=== PATIENT | male | born 1945 | race Caucasian/White ===

== ENCOUNTER 2016-09-30 15:36 | Inpatient (IN) | payer MEDICARE, BC ==
[2016-09-30 16:15] LABS: CHLORIDE,CL 103 mmol/L (98-110); SODIUM,NA 140 mmol/L (136-146)
[2016-09-30] MEDS ORDERED: Iopamidol 755 MG/ML 500 ML Multipack Bottle IVPUSH STA (17:14)
[2016-09-30] MEDS ORDERED: Heparin Sodium/D5W 25,000 UNITS/500 ML BAG IV SCH (18:15)
[2016-09-30] MEDS ORDERED: Heparin Sodium 5,000 Units/ML Vial IV ONE (18:30)
[2016-09-30] MEDS ORDERED: LORazepam 2 MG/ML MDV IVPUSH PRN ×2 (20:25→20:32)
[2016-09-30] MEDS ORDERED: oxyCODONE 5 MG Tab PO PRN (20:31)
--- NOTE | 2016-09-30 20:32 | PCM.HP ---
H&P History of Present Illness - General Admit Problem/Dx: Admission Diagnosis/Problem Admission Diagnosis/Problem Tachycardia - History of Present Illness Initial Comments - Free Text/Narative: 71 yo male who woke up this morning with a painful swollen right calf. He did have an episode of lightheadedness and shortness of breath. He presented to Dr. Stanton's clinic where he was noted to be tachycardic with EKG showing junctional tachycardia with heart rate of 122. He was directely admitted to the hospital. He then underwent a CT angio which reported bilateral acute pulmonary emboli with large clot burden. Patient currently denies any shortness of breath or chest pain. Echocardiogram was performed at bedside with eICU Dr. Ordonez on monitor and severe RV dysfunction was not seen. Right Leg Pain Score (Numeric/FACES): 1 - Related Data Allergies/Adverse Reactions: Allergies Allergy/AdvReac Type Severity Reaction Status Date / Time No Known Allergies Allergy Verified 09/30/16 16:58 Past Medical History - Infectious Disease History Infectious Disease History: Reports: Chicken Pox - Past Surgical History HEENT Surgical History: Reports: Other (See Below) Other HEENT Surgeries/Procedures: adenoid surgery when he was 17 yo. pt barely can remember. Social & Family History - Family History Family Medical History: Noncontributory - Tobacco Use Smoking Status *Q: Never Smoker Second Hand Smoke Exposure: No - Caffeine Use Caffeine Use: Reports: None - Alcohol Use Days Per Week of Alcohol Use: 7 Number of Drinks Per Day: 10 Total Drinks Per Week: 70 Date of Last Drink: 09/29/16 Time of Last Drink: 20:40 - Recreational Drug Use Recreational Drug Use: Yes H&P Review of Systems - Review of Systems: Review Of Systems: See Below General: Reports: No Symptoms HEENT: Reports: No Symptoms Pulmonary: Reports: No Symptoms Cardiovascular: Reports: No Symptoms Gastrointestinal: Reports: No Symptoms Genitourinary: Reports: No Symptoms Musculoskeletal: Reports: No Symptoms Skin: Reports: No Symptoms Psychiatric: Reports: No Symptoms Neurological: Reports: No Symptoms Hematologic/Lymphatic: Reports: No Symptoms Immunologic: Reports: No Symptoms Exam - Exam Exam: See Below - Vital Signs Vital Signs: Last Vital Signs Temp 36.4 C 09/30/16 17:17 Pulse 127 H 09/30/16 16:57 Resp 17 09/30/16 19:00 BP 131/87 09/30/16 19:00 Pulse Ox 94 L 09/30/16 19:00 Weight: 85.684 kg - Exam General: Alert, Oriented, 4 Lungs: Clear to Auscultation, Normal Respiratory Effort Cardiovascular: Regular Rhythm, Tachycardia Extremities: Normal Inspection. No: Cyanosis, Edema Skin: Warm, Dry, Intact Neurological: No: Focal Deficit Neuro Extensive - Mental Status: Alert, Oriented x3 - Patient Data Lab Results last 24 hrs: Laboratory Results - last 24 hr 09/30/16 09/30/16 09/30/16 Range/Units 15:46 15:46 15:46 WBC 9.92 (4.0-11.0) K/uL RBC 5.01 (4.50-5.90) M/uL Hgb 17.5 H (13.0-17.0) g/dL Hct 50.5 H (38.0-50.0) % MCV 100.8 H (80.0-98.0) fL MCH 34.9 H (27.0-32.0) pg MCHC 34.7 (31.0-37.0) g/dL RDW Std Deviation 52.6 (28.0-62.0) fl RDW Coeff of Joyce 14 (11.0-15.0) % Plt Count 166 (150-400) K/uL MPV 9.30 (7.40-12.00) fL Neut % (Auto) 84.5 H (48.0-80.0) % Lymph % (Auto) 6.6 L (16.0-40.0) % Canadian % (Auto) 7.5 (0.0-15.0) % Eos % (Auto) 1.2 (0.0-7.0) % Baso % (Auto) 0.2 (0.0-1.5) % Neut # (Auto) 8.4 H (1.4-5.7) K/uL Lymph # (Auto) 0.7 (0.6-2.4) K/uL Canadian # (Auto) 0.7 (0.0-0.8) K/uL Eos # (Auto) 0.1 (0.0-0.7) K/uL Baso # (Auto) 0.0 (0.0-0.1) K/uL Nucleated RBC % 0.0 /100WBC Nucleated RBCs # 0 K/uL INR (0.86-1.11) APTT (18.6-31.3) SEC D-Dimer, Quantitative (0.0-0.52) mg/LFEU Sodium 140 (136-146) mmol/L Potassium 4.1 (3.5-5.1) mmol/L Chloride 103 (98-110) mmol/L Carbon Dioxide 24 (21-31) mmol/L BUN 9 (6.0-23.0) mg/dL Creatinine 0.8 (0.6-1.5) mg/dL Est Cr Clr Drug Dosing TNP Estimated GFR (MDRD) > 60.0 ml/min Glucose 130 H (60-110) mg/dL Calcium 9.5 (8.8-10.8) mg/dL Total Bilirubin 1.9 H (0.1-1.5) mg/dL AST 31 (5-40) IU/L ALT 25 (8-54) IU/L Alkaline Phosphatase 86 (40-150) Troponin I 0.45 H* (0.0-0.29) NG/ML B-Natriuretic Peptide (<100) PG/ML Total Protein 7.5 (6.0-8.0) g/dL Albumin 4.0 (3.4-4.8) g/dL Globulin 3.5 (2.0-3.5) g/dL Albumin/Globulin Ratio 1.1 L (1.3-2.8) 09/30/16 09/30/16 09/30/16 Range/Units 15:46 15:46 15:46 WBC (4.0-11.0) K/uL RBC (4.50-5.90) M/uL Hgb (13.0-17.0) g/dL Hct (38.0-50.0) % MCV (80.0-98.0) fL MCH (27.0-32.0) pg MCHC (31.0-37.0) g/dL RDW Std Deviation (28.0-62.0) fl RDW Coeff of Joyce (11.0-15.0) % Plt Count (150-400) K/uL MPV (7.40-12.00) fL Neut % (Auto) (48.0-80.0) % Lymph % (Auto) (16.0-40.0) % Canadian % (Auto) (0.0-15.0) % Eos % (Auto) (0.0-7.0) % Baso % (Auto) (0.0-1.5) % Neut # (Auto) (1.4-5.7) K/uL Lymph # (Auto) (0.6-2.4) K/uL Canadian # (Auto) (0.0-0.8) K/uL Eos # (Auto) (0.0-0.7) K/uL Baso # (Auto) (0.0-0.1) K/uL Nucleated RBC % /100WBC Nucleated RBCs # K/uL INR (0.86-1.11) APTT 27.5 (18.6-31.3) SEC D-Dimer, Quantitative 18.12 H (0.0-0.52) mg/LFEU Sodium (136-146) mmol/L Potassium (3.5-5.1) mmol/L Chloride (98-110) mmol/L Carbon Dioxide (21-31) mmol/L BUN (6.0-23.0) mg/dL Creatinine (0.6-1.5) mg/dL Est Cr Clr Drug Dosing Estimated GFR (MDRD) ml/min Glucose (60-110) mg/dL Calcium (8.8-10.8) mg/dL Total Bilirubin (0.1-1.5) mg/dL AST (5-40) IU/L ALT (8-54) IU/L Alkaline Phosphatase (40-150) Troponin I (0.0-0.29) NG/ML B-Natriuretic Peptide 183 H (<100) PG/ML Total Protein (6.0-8.0) g/dL Albumin (3.4-4.8) g/dL Globulin (2.0-3.5) g/dL Albumin/Globulin Ratio (1.3-2.8) 09/30/ Range/Units 15:46 WBC (4.0-11.0) K/uL RBC (4.50-5.90) M/uL Hgb (13.0-17.0) g/dL Hct (38.0-50.0) % MCV (80.0-98.0) fL MCH (27.0-32.0) pg MCHC (31.0-37.0) g/dL RDW Std Deviation (28.0-62.0) fl RDW Coeff of Joyce (11.0-15.0) % Plt Count (150-400) K/uL MPV (7.40-12.00) fL Neut % (Auto) (48.0-80.0) % Lymph % (Auto) (16.0-40.0) % Canadian % (Auto) (0.0-15.0) % Eos % (Auto) (0.0-7.0) % Baso % (Auto) (0.0-1.5) % Neut # (Auto) (1.4-5.7) K/uL Lymph # (Auto) (0.6-2.4) K/uL Canadian # (Auto) (0.0-0.8) K/uL Eos # (Auto) (0.0-0.7) K/uL Baso # (Auto) (0.0-0.1) K/uL Nucleated RBC % /100WBC Nucleated RBCs # K/uL INR 1.08 (0.86-1.11) APTT (18.6-31.3) SEC D-Dimer, Quantitative (0.0-0.52) mg/LFEU Sodium (136-146) mmol/L Potassium (3.5-5.1) mmol/L Chloride (98-110) mmol/L Carbon Dioxide (21-31) mmol/L BUN (6.0-23.0) mg/dL Creatinine (0.6-1.5) mg/dL Est Cr Clr Drug Dosing Estimated GFR (MDRD) ml/min Glucose (60-110) mg/dL Calcium (8.8-10.8) mg/dL Total Bilirubin (0.1-1.5) mg/dL AST (5-40) IU/L ALT (8-54) IU/L Alkaline Phosphatase (40-150) Troponin I (0.0-0.29) NG/ML B-Natriuretic Peptide (<100) PG/ML Total Protein (6.0-8.0) g/dL Albumin (3.4-4.8) g/dL Globulin (2.0-3.5) g/dL Albumin/Globulin Ratio (1.3-2.8) Result Diagrams: 10/01/16 03:52 10/01/16 03:52 *Q Meaningful Use (ADM) - VTE *Q VTE Criteria *Q: - Stroke *Q Stroke Criteria *Q: - AMI *Q AMI Criteria *Q: Problem List Initiated/Reviewed/Updated: Yes Orders Last 24hrs: Active Orders 24 hr Category Date Time Status Transfer Patient (Change bed) [ADT] Routine ADT 09/30/16 17:00 Ordered Cardiac Monitoring [RC] Q8H Care 09/30/16 17:00 Active EKG Documentation Completion [RC] ROUTINE Care 10/01/16 07:00 Active Heart Healthy Diet [DIET] Diet 09/30/16 Dinner Active Ang Chest [CT] Stat Exams 09/30/16 17:02 Taken Echo Comp wo Cont [US] Urgent Exams 09/30/16 19:05 Ordered PTT,PARTIAL THROMBOPLSTIN TIME [COAG] Q6H Lab 09/30/16 22:00 Ordered PTT,PARTIAL THROMBOPLSTIN TIME [COAG] Q6H Lab 10/01/16 04:00 Ordered PTT,PARTIAL THROMBOPLSTIN TIME [COAG] Q6H Lab 10/01/16 10:00 Ordered PTT,PARTIAL THROMBOPLSTIN TIME [COAG] Q6H Lab 10/01/16 16:00 Ordered PTT,PARTIAL THROMBOPLSTIN TIME [COAG] Q6H Lab 10/01/16 22:00 Ordered PTT,PARTIAL THROMBOPLSTIN TIME [COAG] Q6H Lab 10/02/16 04:00 Ordered TROPONIN I [CHEM] Routine Lab 09/30/16 22:00 Ordered TROPONIN I [CHEM] Routine Lab 10/01/16 04:00 Ordered Heparin Sod,Pork In 0.45% Nacl [Heparin-1/2Ns 25,000 Med 09/30/16 18:30 Active Units/500] 500 ml IV TITRATE Medication Orders Heparin Sod,Pork In 0.45% Nacl (Heparin-1/2ns 25,000 Units/500) 500 mls @ 30.211 mls/hr IV TITRATE ANIL; 18 UNITS/KG/HR PRN Reason: Protocol Last Admin: 09/30/16 18:29 Dose: 18 units/kg/hr, 30.211 mls/hr Assessment/Plan Comment:: 71 yo male admited with bilateral acute pulmonary emboli. There is large clot burden but as patient is hemodynamically stable and not hypoxic I would avoid risk of thrombolysis. We will treat with Heparin drip and monitor in the ICU.
[2016-09-30] MEDS: Thiamine 200 MG/2 ML MDV IV SCH (21:04)
[2016-09-30] MEDS: Folic Acid 50 MG/10 ML MDV SUBCUT SCH (21:07)
[2016-10-01 04:27] LABS: CHLORIDE,CL 107 mmol/L (98-110); SODIUM,NA 141 mmol/L (136-146)
[2016-10-01] MEDS: Folic Acid 50 MG/10 ML MDV SUBCUT SCH (09:01)
[2016-10-01] MEDS: Thiamine 200 MG/2 ML MDV IV SCH (09:03)
--- NOTE | 2016-10-01 13:32 | CT ---
EXAM DATE: 09/30/16 PATIENT'S AGE: 71 Patient: EMILY LANGLEY Facility: [place], [place] Site . Site : 1945 Study: CT Chest Angio [id number] 6:09:42 PM Ordering Physician: Romy Arroyo Final Report: HISTORY: Shortness of breath. TECHNIQUE: Intravenous contrast enhanced CT of the chest. 50 mL of Isovue-370 intravenous contrast administered. COMPARISON: No prior. FINDINGS: The study is positive for bilateral pulmonary emboli with large clot burden. Pulmonary emboli are present within the distal right pulmonary artery extending into upper lobe, middle lobe and lower lobe pulmonary arterial branches. On the left, there are pulmonary emboli within the distal pulmonary artery extending into upper lobe, lingular and left lower lobe pulmonary arterial branches. There is no thoracic aortic aneurysm. No significant pericardial effusion. 1 cm right paratracheal short axis lymph node. No other enlarged lymph nodes. Trace amount of right pleural fluid. Subpleural opacity within the right lower lobe could relate to small areas of pulmonary infarction. Subpleural atelectasis would be a secondary consideration. 3 mm subpleural nodule right lower lobe image #393 of series 401. No pneumothorax. Degenerative changes of the spine. IMPRESSION: 1. Bilateral acute pulmonary emboli with large clot burden. 2. Areas of subpleural opacity within the right lower lobe may relate to small areas of pulmonary infarction. 3. Trace right pleural fluid. 4. A 3 mm subpleural micro nodule within the right lower lobe. - Findings were discussed with Dr. Gu on 09/30/2016 at 6:45 p.m. Dictated by Balbir Carson MD @ 09/30/2016 6:43:08 PM Dictated by: Balbir Carson MD @ 09/30/2016 18:47:26 (Electronic Signature) Report Signed by Proxy. JASPER
--- NOTE | 2016-10-01 15:21 | ECHO ---
The echocardiogram report can be seen in this patient's EMR in the Reports section. JASPER
--- NOTE | 2016-10-01 18:40 | PCM.PN ---
- General Info Admission Dx/Problem (Free Text): Admission Diagnosis/Problem Admission Diagnosis/Problem Tachycardia Subjective Update: Patient feels good. no complaints or concerns Functional Status: Reports: pain controlled - Review of Systems General: Reports: No Symptoms HEENT: Reports: no symptoms Pulmonary: Reports: no symptoms Cardiovascular: Reports: No Symptoms Gastrointestinal: Reports: No symptoms Genitourinary: Reports: no symptoms Musculoskeletal: Reports: no symptoms Skin: Reports: no symptoms Neurological: Reports: No Symptoms Psychiatric: Reports: no symptoms - Patient Data Vitals - most recent: Last Vital Signs Temp 38.2 C H 10/01/16 14:00 Pulse 127 H 09/30/16 16:57 Resp 19 10/01/16 17:00 BP 130/86 10/01/16 17:00 Pulse Ox 94 L 10/01/16 17:00 Weight - most recent: 85.366 kg I&O - last 24 hours: Intake & Output 10/01/16 10/01/16 10/01/16 06:59 14:59 22:59 Intake Total 400 182 750 Output Total 380 400 Balance 20 182 350 Lab Results last 24 hrs: Laboratory Results - last 24 hr 09/30/16 09/30/16 10/01/16 Range/Units 22:00 22:00 03:52 WBC (4.0-11.0) K/uL RBC (4.50-5.90) M/uL Hgb (13.0-17.0) g/dL Hct (38.0-50.0) % MCV (80.0-98.0) fL MCH (27.0-32.0) pg MCHC (31.0-37.0) g/dL RDW Std Deviation (28.0-62.0) fl RDW Coeff of Joyce (11.0-15.0) % Plt Count (150-400) K/uL MPV (7.40-12.00) fL Neut % (Auto) (48.0-80.0) % Lymph % (Auto) (16.0-40.0) % Leslie % (Auto) (0.0-15.0) % Eos % (Auto) (0.0-7.0) % Baso % (Auto) (0.0-1.5) % Neut # (Auto) (1.4-5.7) K/uL Lymph # (Auto) (0.6-2.4) K/uL Leslie # (Auto) (0.0-0.8) K/uL Eos # (Auto) (0.0-0.7) K/uL Baso # (Auto) (0.0-0.1) K/uL Nucleated RBC % /100WBC Nucleated RBCs # K/uL APTT 82.6 H (18.6-31.3) SEC Sodium (136-146) mmol/L Potassium (3.5-5.1) mmol/L Chloride (98-110) mmol/L Carbon Dioxide (21-31) mmol/L BUN (6.0-23.0) mg/dL Creatinine (0.6-1.5) mg/dL Est Cr Clr Drug Dosing mL/min Estimated GFR (MDRD) ml/min Glucose (60-110) mg/dL Calcium (8.8-10.8) mg/dL Troponin I 0.46 H* 0.29 (0.0-0.29) NG/ML 10/01/16 10/01/16 10/01/16 Range/Units 03:52 03:52 03:52 WBC 9.93 (4.0-11.0) K/uL RBC 4.51 (4.50-5.90) M/uL Hgb 15.7 (13.0-17.0) g/dL Hct 44.8 (38.0-50.0) % MCV 99.3 H (80.0-98.0) fL MCH 34.8 H (27.0-32.0) pg MCHC 35.0 (31.0-37.0) g/dL RDW Std Deviation 52.3 (28.0-62.0) fl RDW Coeff of Joyce 14 (11.0-15.0) % Plt Count 145 L (150-400) K/uL MPV 9.50 (7.40-12.00) fL Neut % (Auto) 67.6 (48.0-80.0) % Lymph % (Auto) 16.0 (16.0-40.0) % Leslie % (Auto) 10.9 (0.0-15.0) % Eos % (Auto) 5.1 (0.0-7.0) % Baso % (Auto) 0.4 (0.0-1.5) % Neut # (Auto) 6.7 H (1.4-5.7) K/uL Lymph # (Auto) 1.6 (0.6-2.4) K/uL Leslie # (Auto) 1.1 H (0.0-0.8) K/uL Eos # (Auto) 0.5 (0.0-0.7) K/uL Baso # (Auto) 0.0 (0.0-0.1) K/uL Nucleated RBC % 0.0 /100WBC Nucleated RBCs # 0 K/uL APTT 56.7 H (18.6-31.3) SEC Sodium 141 (136-146) mmol/L Potassium 3.7 (3.5-5.1) mmol/L Chloride 107 (98-110) mmol/L Carbon Dioxide 22 (21-31) mmol/L BUN 8 (6.0-23.0) mg/dL Creatinine 0.7 (0.6-1.5) mg/dL Est Cr Clr Drug Dosing 114.17 mL/min Estimated GFR (MDRD) > 60.0 ml/min Glucose 99 (60-110) mg/dL Calcium 8.7 L (8.8-10.8) mg/dL Troponin I (0.0-0.29) NG/ML 10/01/16 10/01/16 Range/Units 09:57 16:00 WBC (4.0-11.0) K/uL RBC (4.50-5.90) M/uL Hgb (13.0-17.0) g/dL Hct (38.0-50.0) % MCV (80.0-98.0) fL MCH (27.0-32.0) pg MCHC (31.0-37.0) g/dL RDW Std Deviation (28.0-62.0) fl RDW Coeff of Joyce (11.0-15.0) % Plt Count (150-400) K/uL MPV (7.40-12.00) fL Neut % (Auto) (48.0-80.0) % Lymph % (Auto) (16.0-40.0) % Leslie % (Auto) (0.0-15.0) % Eos % (Auto) (0.0-7.0) % Baso % (Auto) (0.0-1.5) % Neut # (Auto) (1.4-5.7) K/uL Lymph # (Auto) (0.6-2.4) K/uL Leslie # (Auto) (0.0-0.8) K/uL Eos # (Auto) (0.0-0.7) K/uL Baso # (Auto) (0.0-0.1) K/uL Nucleated RBC % /100WBC Nucleated RBCs # K/uL APTT 50.2 H 50.2 H (18.6-31.3) SEC Sodium (136-146) mmol/L Potassium (3.5-5.1) mmol/L Chloride (98-110) mmol/L Carbon Dioxide (21-31) mmol/L BUN (6.0-23.0) mg/dL Creatinine (0.6-1.5) mg/dL Est Cr Clr Drug Dosing mL/min Estimated GFR (MDRD) ml/min Glucose (60-110) mg/dL Calcium (8.8-10.8) mg/dL Troponin I (0.0-0.29) NG/ML Med Orders - Current: Current Medications Alteplase, Recombinant (Activase) 100 mg IV ONETIME PRN PRN Reason: see label comments Folic Acid (Folic Acid) 1 mg SUBCUT DAILY ANIL Last Admin: 10/01/16 09:01 Dose: 1 mg Heparin Sod,Pork In 0.45% Nacl (Heparin-1/2ns 25,000 Units/500) 500 mls @ 30.211 mls/hr IV TITRATE ANIL; 18 UNITS/KG/HR PRN Reason: Protocol Last Admin: 10/01/16 12:44 Dose: 16 units/kg/hr, 26.854 mls/hr Lorazepam (Ativan) 0 mg IVPUSH Q4H PRN; Protocol PRN Reason: Agitation Last Admin: 09/30/16 21:40 Dose: 1 mg Oxycodone HCl (Oxycodone) 5 mg PO Q4H PRN PRN Reason: Pain Thiamine HCl (Vitamin B-1) 100 mg IV DAILY ANIL Last Admin: 10/01/16 09:03 Dose: 100 mg Discontinued Medications Alteplase, Recombinant (Activase) Confirm Administered Dose 100 mg .ROUTE .STK- MED ONE Stop: 09/30/16 19:48 Last Admin: 10/01/16 08:12 Dose: Not Given Heparin Sodium (Porcine) (Heparin Sodium) 5,000 units IV ONETIME ONE Stop: 09/30/16 18:31 Last Admin: 09/30/16 18:26 Dose: 5,000 units Iopamidol (Isovue Multipack-370 (76%)) 50 ml IVPUSH ONETIME STA Stop: 09/30/16 17:15 Last Admin: 09/30/16 17:14 Dose: 50 ml Lorazepam (Ativan) 0 mg IVPUSH Q6H PRN; Protocol PRN Reason: Agitation - Exam General: alert, oriented HEENT: Pupils equal, Pupils reactive, EOMI, Mucous membr. moist/pink Neck: supple Lungs: Clear to auscultation, Normal respiratory effort Cardiovascular: Regular Rhythm, Tachycardia Abdomen: bowel sounds present, soft, no tenderness, no distension (Male) Exam: No Hernia, Normal Inspection, Normal Prostate, Circumcised Back Exam: Normal Inspection, Full Range of Motion Extremities: no edema Skin: warm, dry, intact Wound/Incisions: healing well Neurological: no new focal deficit Psy/Mental Status: alert, normal affect, normal mood - Problem List Review Problem List Initiated/Reviewed/Updated: Yes - My Orders Last 24 Hours: My Active Orders 10/02/16 05:00 BMP [BASIC METABOLIC PANEL,BMP] [CHEM] Routine CBC WITH AUTO DIFF [HEME] Routine - Plan Plan:: 71 yo male admited with bilateral acute pulmonary emboli. There is large clot burden but as patient is hemodynamically stable and not hypoxic I would avoid risk of thrombolysis. We will treat with Heparin drip and monitor in the ICU. Consult Cardiology today.
--- NOTE | 2016-10-01 20:26 | CONS ---
DATE OF CONSULTATION: DATE OF : 1945 PRIMARY CARE PHYSICIAN: None PCP REASON FOR CONSULTATION: Tachycardia. HISTORY OF PRESENT ILLNESS: This is a 71-year-old male patient, who was without prior cardiac history, who was seen in the clinic with his PCP due to the right leg swollen and also shortness of breath. He has been in his usual state of health until like 2 days ago. He started having a right leg swollen and tenderness and later on, he developed shortness of breath while walking with feeling dizzy, cold sweats, but no chest pain. He was seen by Dr. Stanton who found that he has a tachycardia and he was admitted to the hospital in the concern of PE. He was admitted to the hospital, CT of the chest angiogram was done that showed bilateral PE with burning blood clot and heparin IV drip was started, and also troponin was checked, it was mildly elevated at 0.45 and 0.46 and the last one is 0.23 with mildly elevated BNP 183, creatinine 0.8. His D-dimer was elevated at 18. Result of the echocardiogram has shown mildly reduced RV function as well as mildly reduced LVEF and LV systolic dysfunction. Reportedly, it was 45% to 50% but my view is probably 40% to 45%. Apparently, the patient has a PSA done before it was normal and never had a colonoscopy, never been diagnosed with any diagnosis of blood clot or any cancer. Currently, after IV heparin drip, his leg swelling seemed to be improved, no pain any more. His breathing seemed to be better, but he has not ambulated yet. His O2 saturation has run between 95 on room air all the time. EKG; he never had a stress test or any other medical problem before. PAST MEDICAL HISTORY: Negative for diabetes, hypertension, hyperlipidemia. SOCIAL HISTORY: Denies smoking, drug use, but he drinks almost every day 6 to 8 glasses a day. FAMILY HISTORY: No history of CAD or blood clots. ALLERGIES: No known drug allergies. MEDICATIONS: Including heparin IV drip. EKG; initial EKG show narrow complex tachycardia, heart rate of 122, QRS duration of 101, QTc questioning 552. Then, the following EKG on October 01, 2016 shows sinus tachycardia, heart rate of 102. PHYSICAL EXAMINATION: VITAL SIGNS: Blood pressure 119/84, has never been hypotensive, respiration is 12 to 15, O2 saturation 92% to 96% on room air, heart rate of 106 to 107, temperature 36.1. HEENT: No pallor. No jaundice. No JVD. HEART: Normal S1, S2. Tachycardia. No murmur. LUNGS: Clear. No wheezing. No crackles. ABDOMEN: Soft, nontender. Bowel sounds present. No hepatosplenomegaly. EXTREMITIES: The right leg, mild swelling, mild tenderness. Homans' sign is negative. LABORATORY INVESTIGATION: EKG shows narrow complex tachycardia, most likely sinus tachycardia. Echocardiogram showed mildly reduced LV systolic dysfunction as well as RV systolic dysfunction. The CT angiogram showed bilateral PE with the burn blood clot. Troponin was mildly elevated at 0.46. CBC showed WBC of 9, hematocrit 44, hemoglobin 15, and platelet 145. D-dimer 18. Sodium 141, potassium 3.7, chloride 107, bicarb 22, BUN 8, creatinine 0.8. GFR is more than 60. ASSESSMENT AND PLAN: This is a 71-year-old male without prior cardiac history, presented to hospital with right leg swelling and shortness of breath, found to have bilateral pulmonary embolism and a large pulmonary embolism. He never been hypotensive. His tachycardia seemed to be improved after IV heparin drip started. Regarding his RV systolic dysfunction on echocardiogram, he has remained controversy regarding thrombolytic therapy for acute PE in the setting of RV dysfunction. However, it was consulted with distribution system operator eICU and they recommend not to do the tPA. He has been doing well and the plan will be change to anticoagulation orally in the next day. He needs a cancer screening workup. For his troponin elevation most likely demanding ischemia from PE as well as his LV and RV systolic function most likely from PE as well. He also drinks alcohol every day considerable amount of 6 to 8 glasses a day. This could contribute to LV systolic dysfunction, I think he needs to stop. I recommended him to stop drinking and repeat an echocardiogram possibly 3 to 6 months afterwards. VESNA / SURINDER /[id number]
[2016-10-01] MEDS ORDERED: Acetaminophen 325 MG Tab PO PRN (20:58)
[2016-10-01] MEDS ORDERED: Heparin Sodium 5,000 Units/ML Vial ONE (22:55)
[2016-10-01] MEDS ORDERED: Heparin Sodium 5,000 Units/ML Vial IVPUSH ONE (23:01)
[2016-10-02 04:48] LABS: CHLORIDE,CL 109 mmol/L (98-110); SODIUM,NA 141 mmol/L (136-146)
[2016-10-02] MEDS: Folic Acid 50 MG/10 ML MDV SUBCUT SCH (08:00)
[2016-10-02] MEDS: Thiamine 200 MG/2 ML MDV IV SCH (08:00)
--- NOTE | 2016-10-02 11:39 | PCM.PN ---
- Review of Systems Systems Review Comment:: no chest pain, no shortness of breath. - Patient Data Vitals - most recent: Last Vital Signs Temp 37.1 C 10/02/16 08:00 Pulse 127 H 09/30/16 16:57 Resp 19 10/02/16 11:00 BP 120/81 10/02/16 11:00 Pulse Ox 95 10/02/16 11:00 Weight - most recent: 84.368 kg I&O - last 24 hours: Intake & Output 10/01/16 10/02/16 10/02/16 22:59 06:59 14:59 Intake Total 750 250 Output Total 400 550 Balance 350 -300 Lab Results last 24 hrs: Laboratory Results - last 24 hr 10/01/16 10/01/16 10/02/16 Range/Units 16:00 22:05 03:53 WBC (4.0-11.0) K/uL RBC (4.50-5.90) M/uL Hgb (13.0-17.0) g/dL Hct (38.0-50.0) % MCV (80.0-98.0) fL MCH (27.0-32.0) pg MCHC (31.0-37.0) g/dL RDW Std Deviation (28.0-62.0) fl RDW Coeff of Joyce (11.0-15.0) % Plt Count (150-400) K/uL MPV (7.40-12.00) fL Neut % (Auto) (48.0-80.0) % Lymph % (Auto) (16.0-40.0) % Charles % (Auto) (0.0-15.0) % Eos % (Auto) (0.0-7.0) % Baso % (Auto) (0.0-1.5) % Neut # (Auto) (1.4-5.7) K/uL Lymph # (Auto) (0.6-2.4) K/uL Charles # (Auto) (0.0-0.8) K/uL Eos # (Auto) (0.0-0.7) K/uL Baso # (Auto) (0.0-0.1) K/uL Nucleated RBC % /100WBC Nucleated RBCs # K/uL APTT 50.2 H 46.4 H 65.1 H (18.6-31.3) SEC Sodium (136-146) mmol/L Potassium (3.5-5.1) mmol/L Chloride (98-110) mmol/L Carbon Dioxide (21-31) mmol/L BUN (6.0-23.0) mg/dL Creatinine (0.6-1.5) mg/dL Est Cr Clr Drug Dosing mL/min Estimated GFR (MDRD) ml/min Glucose (60-110) mg/dL Calcium (8.8-10.8) mg/dL 10/02/16 10/02/16 10/02/16 Range/Units 03:53 03:53 10:32 WBC 7.19 (4.0-11.0) K/uL RBC 4.29 L (4.50-5.90) M/uL Hgb 15.1 (13.0-17.0) g/dL Hct 42.9 (38.0-50.0) % MCV 100.0 H (80.0-98.0) fL MCH 35.2 H (27.0-32.0) pg MCHC 35.2 (31.0-37.0) g/dL RDW Std Deviation 51.4 (28.0-62.0) fl RDW Coeff of Joyce 14 (11.0-15.0) % Plt Count 141 L (150-400) K/uL MPV 9.80 (7.40-12.00) fL Neut % (Auto) 54.8 (48.0-80.0) % Lymph % (Auto) 24.5 (16.0-40.0) % Charles % (Auto) 11.1 (0.0-15.0) % Eos % (Auto) 9.2 H (0.0-7.0) % Baso % (Auto) 0.4 (0.0-1.5) % Neut # (Auto) 3.9 (1.4-5.7) K/uL Lymph # (Auto) 1.8 (0.6-2.4) K/uL Charles # (Auto) 0.8 (0.0-0.8) K/uL Eos # (Auto) 0.7 (0.0-0.7) K/uL Baso # (Auto) 0.0 (0.0-0.1) K/uL Nucleated RBC % 0.0 /100WBC Nucleated RBCs # 0 K/uL APTT 59.3 H (18.6-31.3) SEC Sodium 141 (136-146) mmol/L Potassium 3.9 (3.5-5.1) mmol/L Chloride 109 (98-110) mmol/L Carbon Dioxide 22 (21-31) mmol/L BUN 10 (6.0-23.0) mg/dL Creatinine 0.7 (0.6-1.5) mg/dL Est Cr Clr Drug Dosing 114.21 mL/min Estimated GFR (MDRD) > 60.0 ml/min Glucose 92 (60-110) mg/dL Calcium 8.4 L (8.8-10.8) mg/dL Med Orders - Current: Current Medications Acetaminophen (Tylenol) 650 mg PO Q4H PRN PRN Reason: Pain/Fever Last Admin: 10/01/16 21:09 Dose: 650 mg Alteplase, Recombinant (Activase) 100 mg IV ONETIME PRN PRN Reason: see label comments Folic Acid (Folic Acid) 1 mg SUBCUT DAILY [facility] Last Admin: 10/02/16 08:00 Dose: 1 mg Heparin Sod,Pork In 0.45% Nacl (Heparin-1/2ns 25,000 Units/500) 500 mls @ 30.211 mls/hr IV TITRATE [facility]; 18 UNITS/KG/HR PRN Reason: Protocol Stop: 10/02/16 21:00 Last Admin: 10/02/16 07:51 Dose: 18 units/kg/hr, 30.211 mls/hr Lorazepam (Ativan) 0 mg IVPUSH Q4H PRN; Protocol PRN Reason: Agitation Last Admin: 09/30/16 21:40 Dose: 1 mg Oxycodone HCl (Oxycodone) 5 mg PO Q4H PRN PRN Reason: Pain Rivaroxaban (Xarelto) 15 mg PO BID [facility] Thiamine HCl (Vitamin B-1) 100 mg IV DAILY [facility] Last Admin: 10/02/16 08:00 Dose: 100 mg Discontinued Medications Alteplase, Recombinant (Activase) Confirm Administered Dose 100 mg .ROUTE .STK- MED ONE Stop: 09/30/16 19:48 Last Admin: 10/01/16 08:12 Dose: Not Given Heparin Sodium (Porcine) (Heparin Sodium) 5,000 units IV ONETIME ONE Stop: 09/30/16 18:31 Last Admin: 09/30/16 18:26 Dose: 5,000 units Heparin Sodium (Porcine) (Heparin Sodium) Confirm Administered Dose 5,000 units .ROUTE .STK-MED ONE Stop: 10/01/16 22:56 Last Admin: 10/01/16 23:13 Dose: Not Given Heparin Sodium (Porcine) (Heparin Sodium) 1,500 units IVPUSH ONETIME ONE PRN Reason: Protocol Stop: 10/01/16 23:02 Last Admin: 10/01/16 23:13 Dose: 1,500 units Iopamidol (Isovue Multipack-370 (76%)) 50 ml IVPUSH ONETIME STA Stop: 09/30/16 17:15 Last Admin: 09/30/16 17:14 Dose: 50 ml Lorazepam (Ativan) 0 mg IVPUSH Q6H PRN; Protocol PRN Reason: Agitation - Exam General: alert, oriented Lungs: Clear to auscultation, Normal respiratory effort Cardiovascular: Regular Rate, Regular Rhythm Abdomen: bowel sounds present, soft, no tenderness, no distension Extremities: no edema - Problem List Review Problem List Initiated/Reviewed/Updated: Yes - My Orders Last 24 Hours: My Active Orders 10/01/16 20:58 Acetaminophen [Tylenol] 650 mg PO Q4H PRN 10/02/16 11:35 Transfer Patient (Change bed) [ADT] Routine 10/02/16 21:00 Rivaroxaban [Xarelto] 15 mg PO BID - Plan Plan:: 71 yo male admitted with bilateral acute pulmonary emboli. Patient is relatively asymptomatic, Will switch to xarelto and stop heparin drip tonight. Patient at discharge is to have a follow up Echocardiogram in 3-6 months.
[2016-10-02] MEDS ORDERED: Polyethylene Glycol 3350 Powder 17 GM Packet PO SCH (14:15)
[2016-10-02] MEDS: Rivaroxaban 15 MG Tab PO SCH (21:03)
[2016-10-03] MEDS ORDERED: Folic Acid 1 MG Tab PO SCH (09:00)
[2016-10-03] MEDS ORDERED: Thiamine 100 MG Tab PO SCH (09:00)
[2016-10-03 09:04] LABS: CHLORIDE,CL 107 mmol/L (98-110); SODIUM,NA 140 mmol/L (136-146)
[2016-10-03] MEDS: Rivaroxaban 15 MG Tab PO SCH (09:07)
[2016-10-03 10:00] VITALS: BP 123/83
--- NOTE | 2016-10-03 12:05 | PCM.DCSUM1 ---
<Monse,Marvel - Last Filed: 10/03/16 14:13> Discharge Summary - Hospital Course Free Text/Narrative:: 71 year old male with no significant PMH was admitted on 09/30 for PE. He is a patient of Dr. Severino and presented to his office morning prior to admission with SOB and right calf swelling. EKG showed sinus tachycardia. CTA revealed large BL PE. Echo was done which revealed EF 45-50% with moderate right heart strain. Patient was treated with Heparin which resolved his symptoms almost instantly. Decision was then made to just continue to treat with heparin and monitor patient. Dr. Kerns, Cardiology was consulted and he recommended checking Troponin and repeating echo in 3-6 months. Patient continued to do well with stable vs. There was no recurrence of symptoms. On 10/03 he was requesting to be discharged. He was given options for anticoagulants and informed of risks and benefits of each. He decided to go with Xeralto. He was started on Xeralto 15 mg BID that he is to switch over to 20 mg daily after 1 day. He was given 7 day prescription at discharge. He was set up for appointment with his PCP Dr. Stanton. - Discharge Data Discharge Date: 10/03/16 Discharge Disposition: Home, Self-Care 01 Condition: Good - Patient Summary/Data Consults: Consultations 10/01/16 10:23 Consult to Physician [CONS] Routine - Patient Instructions Diet: Heart Healthy Diet, No Alcoholic Beverages Activity: As Tolerated Notify Provider of: Fever, Increased Pain, Swelling and Redness, Drainage, Nausea and/or Vomiting - Discharge Plan Prescriptions/Med Rec: Rivaroxaban [Xarelto] 15 mg PO BID #14 tablet Home Medications: Home Meds Rivaroxaban [Xarelto] 15 mg PO BID #14 tablet 10/03/16 [Rx] Patient Handouts: Pulmonary Embolism Referrals: Cruz Stanton DO [Physician] - 10/07/16 2:00 pm (Hospital follow up) - Discharge Summary/Plan Comment DC Time >30 min.: No - Patient Data Vitals - Most Recent: Last Vital Signs Temp 35.7 C 10/03/16 08:00 Pulse 91 10/03/16 08:00 Resp 16 10/03/16 08:00 BP 123/83 10/03/16 08:00 Pulse Ox 93 L 10/03/16 08:00 Weight - Most Recent: 85.729 kg I&O - Last 24 hours: Intake & Output 10/02/16 10/03/16 10/03/16 22:59 06:59 14:59 Intake Total 1000 100 Output Total 350 425 Balance 650 -325 Lab Results - Last 24 hrs: Laboratory Results - last 24 hr 10/03/16 10/03/16 Range/Units 08:36 08:36 WBC 6.43 (4.0-11.0) K/uL RBC 4.74 (4.50-5.90) M/uL Hgb 16.8 (13.0-17.0) g/dL Hct 47.7 (38.0-50.0) % MCV 100.6 H (80.0-98.0) fL MCH 35.4 H (27.0-32.0) pg MCHC 35.2 (31.0-37.0) g/dL RDW Std Deviation 52.4 (28.0-62.0) fl RDW Coeff of Joyce 14 (11.0-15.0) % Plt Count 167 (150-400) K/uL MPV 10.00 (7.40-12.00) fL Nucleated RBC % 0.0 /100WBC Nucleated RBCs # 0 K/uL Sodium 140 (136-146) mmol/L Potassium 3.8 (3.5-5.1) mmol/L Chloride 107 (98-110) mmol/L Carbon Dioxide 22 (21-31) mmol/L BUN 8 (6.0-23.0) mg/dL Creatinine 0.8 (0.6-1.5) mg/dL Est Cr Clr Drug Dosing 99.94 mL/min Estimated GFR (MDRD) > 60.0 ml/min Glucose 127 H (60-110) mg/dL Calcium 9.1 (8.8-10.8) mg/dL Magnesium 1.4 L (1.5-2.3) mEq/L Med Orders - Current: Current Medications Acetaminophen (Tylenol) 650 mg PO Q4H PRN PRN Reason: Pain/Fever Last Admin: 10/01/16 21:09 Dose: 650 mg Folic Acid (Folic Acid) 1 mg PO DAILY [facility] Last Admin: 10/03/16 09:07 Dose: 1 mg Lorazepam (Ativan) 0 mg IVPUSH Q4H PRN; Protocol PRN Reason: Agitation Last Admin: 09/30/16 21:40 Dose: 1 mg Oxycodone HCl (Oxycodone) 5 mg PO Q4H PRN PRN Reason: Pain Rivaroxaban (Xarelto) 15 mg PO BID [facility] Last Admin: 10/03/16 09:07 Dose: 15 mg Thiamine HCl (Vitamin B-1) 100 mg PO DAILY [facility] Last Admin: 10/03/16 09:07 Dose: 100 mg Discontinued Medications Alteplase, Recombinant (Activase) Confirm Administered Dose 100 mg .ROUTE .STK- MED ONE Stop: 09/30/16 19:48 Last Admin: 10/01/16 08:12 Dose: Not Given Alteplase, Recombinant (Activase) 100 mg IV ONETIME PRN PRN Reason: see label comments Folic Acid (Folic Acid) 1 mg SUBCUT DAILY [facility] Last Admin: 10/02/16 08:00 Dose: 1 mg Heparin Sodium (Porcine) (Heparin Sodium) 5,000 units IV ONETIME ONE Stop: 09/30/16 18:31 Last Admin: 09/30/16 18:26 Dose: 5,000 units Heparin Sodium (Porcine) (Heparin Sodium) Confirm Administered Dose 5,000 units .ROUTE .STK-MED ONE Stop: 10/01/16 22:56 Last Admin: 10/01/16 23:13 Dose: Not Given Heparin Sodium (Porcine) (Heparin Sodium) 1,500 units IVPUSH ONETIME ONE PRN Reason: Protocol Stop: 10/01/16 23:02 Last Admin: 10/01/16 23:13 Dose: 1,500 units Heparin Sod,Pork In 0.45% Nacl (Heparin-1/2ns 25,000 Units/500) 500 mls @ 30.211 mls/hr IV TITRATE [facility]; 18 UNITS/KG/HR PRN Reason: Protocol Stop: 10/02/16 21:00 Last Titration: 10/02/16 21:03 Dose: 0 units/kg/hr, 0 mls/hr Iopamidol (Isovue Multipack-370 (76%)) 50 ml IVPUSH ONETIME STA Stop: 09/30/16 17:15 Last Admin: 09/30/16 17:14 Dose: 50 ml Lorazepam (Ativan) 0 mg IVPUSH Q6H PRN; Protocol PRN Reason: Agitation Thiamine HCl (Vitamin B-1) 100 mg IV DAILY [facility] Last Admin: 10/02/16 08:00 Dose: 100 mg *Q Meaningful Use (DIS) - VTE *Q VTE Criteria *Q: - Stroke *Q Stroke Criteria *Q: - AMI *Q AMI Criteria *Q: <Ozzy Gu - Last Filed: 10/03/16 19:37> Discharge Summary - Patient Summary/Data Consults: Consultations 10/01/16 10:23 Consult to Physician [CONS] Routine Hospital Course: I have examined patient. I have discussed findings with resident. I agree with the assessment and plan outlined in the following resident's note except for the following. Patient's symptoms of shortness of breath and dizziness resolved prior to presenting to hospital. His tachycardia resolved on the second day of hospitalization. He is to take Xarelto 15mg BID for 21 days then 20mg daily dosing. - Patient Data Vitals - Most Recent: Last Vital Signs Temp 35.7 C 10/03/16 08:00 Pulse 91 10/03/16 08:00 Resp 16 10/03/16 08:00 BP 123/83 10/03/16 08:00 Pulse Ox 93 L 10/03/16 08:00 I&O - Last 24 hours: Intake & Output 10/03/16 10/03/16 10/03/16 06:59 14:59 22:59 Intake Total 100 Output Total 425 Balance -325 Lab Results - Last 24 hrs: Laboratory Results - last 24 hr 10/03/16 10/03/16 Range/Units 08:36 08:36 WBC 6.43 (4.0-11.0) K/uL RBC 4.74 (4.50-5.90) M/uL Hgb 16.8 (13.0-17.0) g/dL Hct 47.7 (38.0-50.0) % MCV 100.6 H (80.0-98.0) fL MCH 35.4 H (27.0-32.0) pg MCHC 35.2 (31.0-37.0) g/dL RDW Std Deviation 52.4 (28.0-62.0) fl RDW Coeff of Joyce 14 (11.0-15.0) % Plt Count 167 (150-400) K/uL MPV 10.00 (7.40-12.00) fL Nucleated RBC % 0.0 /100WBC Nucleated RBCs # 0 K/uL Sodium 140 (136-146) mmol/L Potassium 3.8 (3.5-5.1) mmol/L Chloride 107 (98-110) mmol/L Carbon Dioxide 22 (21-31) mmol/L BUN 8 (6.0-23.0) mg/dL Creatinine 0.8 (0.6-1.5) mg/dL Est Cr Clr Drug Dosing 99.94 mL/min Estimated GFR (MDRD) > 60.0 ml/min Glucose 127 H (60-110) mg/dL Calcium 9.1 (8.8-10.8) mg/dL Magnesium 1.4 L (1.5-2.3) mEq/L Med Orders - Current: Current Medications Discontinued Medications Acetaminophen (Tylenol) 650 mg PO Q4H PRN PRN Reason: Pain/Fever Last Admin: 10/01/16 21:09 Dose: 650 mg Alteplase, Recombinant (Activase) Confirm Administered Dose 100 mg .ROUTE .STK- MED ONE Stop: 09/30/16 19:48 Last Admin: 10/01/16 08:12 Dose: Not Given Alteplase, Recombinant (Activase) 100 mg IV ONETIME PRN PRN Reason: see label comments Folic Acid (Folic Acid) 1 mg SUBCUT DAILY [facility] Last Admin: 10/02/16 08:00 Dose: 1 mg Folic Acid (Folic Acid) 1 mg PO DAILY [facility] Last Admin: 10/03/16 09:07 Dose: 1 mg Heparin Sodium (Porcine) (Heparin Sodium) 5,000 units IV ONETIME ONE Stop: 09/30/16 18:31 Last Admin: 09/30/16 18:26 Dose: 5,000 units Heparin Sodium (Porcine) (Heparin Sodium) Confirm Administered Dose 5,000 units .ROUTE .STK-MED ONE Stop: 10/01/16 22:56 Last Admin: 10/01/16 23:13 Dose: Not Given Heparin Sodium (Porcine) (Heparin Sodium) 1,500 units IVPUSH ONETIME ONE PRN Reason: Protocol Stop: 10/01/16 23:02 Last Admin: 10/01/16 23:13 Dose: 1,500 units Heparin Sod,Pork In 0.45% Nacl (Heparin-1/2ns 25,000 Units/500) 500 mls @ 30.211 mls/hr IV TITRATE [facility]; 18 UNITS/KG/HR PRN Reason: Protocol Stop: 10/02/16 21:00 Last Titration: 10/02/16 21:03 Dose: 0 units/kg/hr, 0 mls/hr Iopamidol (Isovue Multipack-370 (76%)) 50 ml IVPUSH ONETIME STA Stop: 09/30/16 17:15 Last Admin: 09/30/16 17:14 Dose: 50 ml Lorazepam (Ativan) 0 mg IVPUSH Q6H PRN; Protocol PRN Reason: Agitation Lorazepam (Ativan) 0 mg IVPUSH Q4H PRN; Protocol PRN Reason: Agitation Last Admin: 09/30/16 21:40 Dose: 1 mg Oxycodone HCl (Oxycodone) 5 mg PO Q4H PRN PRN Reason: Pain Rivaroxaban (Xarelto) 15 mg PO BID [facility] Last Admin: 10/03/16 09:07 Dose: 15 mg Thiamine HCl (Vitamin B-1) 100 mg IV DAILY [facility] Last Admin: 10/02/16 08:00 Dose: 100 mg Thiamine HCl (Vitamin B-1) 100 mg PO DAILY [facility] Last Admin: 10/03/16 09:07 Dose: 100 mg *Q Meaningful Use (DIS) - VTE *Q VTE Criteria *Q: - Stroke *Q Stroke Criteria *Q: - AMI *Q AMI Criteria *Q:
== END 2016-10-03 13:30 | disposition home or self-care (01) | DRG 176 ==
LOC: MW.CHIM 15:36 → MW.MS 16:14 → UNDOADMOB 16:14 → OBSVTOIN 16:14 → INTOOBSV 16:14 → UNDOADMOB 17:00 → MW.ICU 17:00 → INTOOBSV 17:00 → OBSVTOIN 17:00 → MW.ICU 17:20 → MW.MS 17:20 → MW.ICU 10-02 11:48
PROVIDERS: ADMIT Internal Medicine; ATTEND Internal Medicine
DX: I26.99 Other pulmonary embolism without acute cor pulmonale (principal); R00.0 Tachycardia, unspecified; M79.89 Other specified soft tissue disorders; M79.661 Pain in right lower leg; R06.02 Shortness of breath
CPT/HCPCS: 36415; 71275; 71275-26; 80048; 80053; 83735; 83880; 84484; 85025; 85027; 85379; 85610; 85730; 93005; 93306; A9270-GY; J1644; J2060; J3411; Q9967

== ENCOUNTER 2016-10-09 15:10 | Observation (INO) | payer MEDICARE, BC ==
[2016-10-09] MEDS ORDERED: Sodium Chloride 0.9% 2.5 ML Syringe FLUSH PRN (15:24)
[2016-10-09] MEDS ORDERED: Sodium Chloride 0.9% 1,000 ML IV ONE (15:24)
[2016-10-09] MEDS ORDERED: Sodium Chloride 0.9% 10 ML Syringe FLUSH PRN (15:24)
--- NOTE | 2016-10-09 15:27 | EDM.PDOC ---
ED HPI GENERAL MEDICAL PROBLEM - General Chief Complaint: Respiratory Problem Stated Complaint: DIZZINESS Time Seen by Provider: 10/09/16 15:14 - History of Present Illness INITIAL COMMENTS - FREE TEXT/NARRATIVE: HISTORY AND PHYSICAL: History of present illness: Patient is 71-year-old white male recently hospitalized for thromboembolic disease with pulmonary embolism is currently on xarelto who presents with a concern of dizziness he states he's had this since discharge and states even had it some degree while in the hospital it has persisted and are intervally worsened he used Dramamine per PMD advice with no improvement he denies any chest pain shortness of breath or other concerns patient denies any shortness of breath with his pulmonary embolism initially but states that he did indeed have some shortness of breath. Review of systems: As per history of present illness and below otherwise all systems reviewed and negative. Past medical history: As per history of present illness and as reviewed below otherwise noncontributory. Surgical history: As per history of present illness and as reviewed below otherwise noncontributory. Social history: No reported history of drug or alcohol abuse. Family history: As per history of present illness and as reviewed below otherwise noncontributory. Physical exam: HEENT: Atraumatic, normocephalic, pupils reactive, negative for conjunctival pallor or scleral icterus, mucous membranes moist, throat clear, neck supple, nontender, trachea midline. Right TM unremarkable left TM incompletely visualized secondary to cerumen Lungs: Clear to auscultation, breath sounds equal bilaterally, chest nontender. Heart: S1S2, regular, negative for clicks, rubs, or JVD. Abdomen: Soft, nondistended, nontender. Negative for masses or hepatosplenomegaly. Negative for costovertebral tenderness. Pelvis: Stable nontender. Genitourinary: Deferred. Rectal: Deferred. Extremities: Atraumatic, negative for cords or calf pain. Neurovascular unremarkable. Neuro: Awake, alert, oriented. Cranial nerves II through XII unremarkable. Cerebellum unremarkable. Motor and sensory unremarkable throughout. Exam nonfocal. Diagnostics: CBC CMP PT/INR troponin chest x-ray EKG CT brain Therapeutics: Normal saline 1 L bolus Impression: #1 dizziness #2 history of pulmonary embolism Definitive disposition and diagnosis as appropriate pending reevaluation and review of above. - Related Data Allergies Allergy/AdvReac Type Severity Reaction Status Date / Time No Known Allergies Allergy Verified 10/09/16 15:20 Home Meds: Home Meds Rivaroxaban [Xarelto] 15 mg PO BID #14 tablet 10/03/16 [Rx] Past Medical History - Infectious Disease History Infectious Disease History: Reports: Chicken Pox - Past Surgical History HEENT Surgical History: Reports: Other (See Below) Other HEENT Surgeries/Procedures: adenoid surgery when he was 17 yo. pt barely can remember. Social & Family History - Family History Family Medical History: Noncontributory - Tobacco Use Smoking Status *Q: Never Smoker Second Hand Smoke Exposure: No - Caffeine Use Caffeine Use: Reports: None - Alcohol Use Days Per Week of Alcohol Use: 7 Number of Drinks Per Day: 10 Total Drinks Per Week: 70 - Recreational Drug Use Recreational Drug Use: Yes ED ROS GENERAL - Review of Systems Review Of Systems: ROS reveals no pertinent complaints other than HPI. ED EXAM, GENERAL - Physical Exam Exam: See Below (See dictation) Course - Vital Signs Last Recorded V/S: Last Vital Signs Temp 35.9 C 10/09/16 15:17 Pulse 80 10/09/16 15:17 Resp 16 10/09/16 15:17 BP 107/77 10/09/16 15:17 Pulse Ox 96 10/09/16 15:17 - Orders/Labs/Meds Orders: Active Orders 24 hr Category Date Time Status Cardiac Monitoring [RC] . DIRECTED Care 10/09/16 15:22 Active EKG Documentation Completion [RC] STAT Care 10/09/16 15:22 Active Oxygen Therapy, ED [RC] ASDIRECTED Care 10/09/16 15:22 Active Pulse Oximetry [RC] ASDIRECTED Care 10/09/16 15:22 Active Chest 1V Frontal [CR] Stat Exams 10/09/16 15:23 Taken Head wo Cont [CT] Stat Exams 10/09/16 15:24 Taken UA W/MICROSCOPIC [URIN] Stat Lab 10/09/16 15:22 Uncollected Sodium Chloride 0.9% [Saline Flush] Med 10/09/16 15:24 Active 10 ml FLUSH ASDIRECTED PRN Sodium Chloride 0.9% [Saline Flush] Med 10/09/16 15:24 Active 2.5 ml FLUSH ASDIRECTED PRN Saline Lock Insert [OM.PC] Stat Oth 10/09/16 15:22 Ordered Medication Orders Sodium Chloride (Saline Flush) 10 ml FLUSH ASDIRECTED PRN PRN Reason: Keep Vein Open Last Admin: 10/09/16 15:41 Dose: 10 ml Sodium Chloride (Saline Flush) 2.5 ml FLUSH ASDIRECTED PRN PRN Reason: Keep Vein Open Last Admin: 10/09/16 15:41 Dose: 2.5 ml Labs: Laboratory Tests 10/09/16 10/09/16 10/09/16 Range/Units 15:37 15:37 15:37 WBC 6.65 (4.0-11.0) K/uL RBC 4.53 (4.50-5.90) M/uL Hgb 16.0 (13.0-17.0) g/dL Hct 45.2 (38.0-50.0) % MCV 99.8 H (80.0-98.0) fL MCH 35.3 H (27.0-32.0) pg MCHC 35.4 (31.0-37.0) g/dL RDW Std Deviation 48.9 (28.0-62.0) fl RDW Coeff of Joyce 14 (11.0-15.0) % Plt Count 254 (150-400) K/uL MPV 9.50 (7.40-12.00) fL Neut % (Auto) 63.6 (48.0-80.0) % Lymph % (Auto) 18.6 (16.0-40.0) % [place] % (Auto) 9.9 (0.0-15.0) % Eos % (Auto) 7.4 H (0.0-7.0) % Baso % (Auto) 0.5 (0.0-1.5) % Neut # (Auto) 4.2 (1.4-5.7) K/uL Lymph # (Auto) 1.2 (0.6-2.4) K/uL [place] # (Auto) 0.7 (0.0-0.8) K/uL Eos # (Auto) 0.5 (0.0-0.7) K/uL Baso # (Auto) 0.0 (0.0-0.1) K/uL Nucleated RBC % 0.0 /100WBC Nucleated RBCs # 0 K/uL INR 1.31 H (0.86-1.11) Sodium 137 (136-146) mmol/L Potassium 4.4 (3.5-5.1) mmol/L Chloride 106 (98-110) mmol/L Carbon Dioxide 22 (21-31) mmol/L BUN 14 (6.0-23.0) mg/dL Creatinine 0.8 (0.6-1.5) mg/dL Est Cr Clr Drug Dosing 102.69 mL/min Estimated GFR (MDRD) > 60.0 ml/min Glucose 105 (60-110) mg/dL Calcium 8.9 (8.8-10.8) mg/dL Total Bilirubin 0.9 (0.1-1.5) mg/dL AST 30 (5-40) IU/L ALT 43 (8-54) IU/L Alkaline Phosphatase 60 (40-150) Troponin I (0.0-0.29) NG/ML Total Protein 7.1 (6.0-8.0) g/dL Albumin 3.9 (3.4-4.8) g/dL Globulin 3.2 (2.0-3.5) g/dL Albumin/Globulin Ratio 1.2 L (1.3-2.8) 10/09/16 Range/Units 15:37 WBC (4.0-11.0) K/uL RBC (4.50-5.90) M/uL Hgb (13.0-17.0) g/dL Hct (38.0-50.0) % MCV (80.0-98.0) fL MCH (27.0-32.0) pg MCHC (31.0-37.0) g/dL RDW Std Deviation (28.0-62.0) fl RDW Coeff of Joyce (11.0-15.0) % Plt Count (150-400) K/uL MPV (7.40-12.00) fL Neut % (Auto) (48.0-80.0) % Lymph % (Auto) (16.0-40.0) % [place] % (Auto) (0.0-15.0) % Eos % (Auto) (0.0-7.0) % Baso % (Auto) (0.0-1.5) % Neut # (Auto) (1.4-5.7) K/uL Lymph # (Auto) (0.6-2.4) K/uL [place] # (Auto) (0.0-0.8) K/uL Eos # (Auto) (0.0-0.7) K/uL Baso # (Auto) (0.0-0.1) K/uL Nucleated RBC % /100WBC Nucleated RBCs # K/uL INR (0.86-1.11) Sodium (136-146) mmol/L Potassium (3.5-5.1) mmol/L Chloride (98-110) mmol/L Carbon Dioxide (21-31) mmol/L BUN (6.0-23.0) mg/dL Creatinine (0.6-1.5) mg/dL Est Cr Clr Drug Dosing mL/min Estimated GFR (MDRD) ml/min Glucose (60-110) mg/dL Calcium (8.8-10.8) mg/dL Total Bilirubin (0.1-1.5) mg/dL AST (5-40) IU/L ALT (8-54) IU/L Alkaline Phosphatase (40-150) Troponin I < 0.10 (0.0-0.29) NG/ML Total Protein (6.0-8.0) g/dL Albumin (3.4-4.8) g/dL Globulin (2.0-3.5) g/dL Albumin/Globulin Ratio (1.3-2.8) Meds: Medications Generic Name Dose Route Start Last Admin Trade Name Freq PRN Reason Stop Dose Admin Sodium Chloride 10 ml 10/09/16 15:24 10/09/16 15:41 Saline Flush FLUSH 10 ml ASDIRECTED PRN Administration Keep Vein Open Sodium Chloride 2.5 ml 10/09/16 15:24 10/09/16 15:41 Saline Flush FLUSH 2.5 ml ASDIRECTED PRN Administration Keep Vein Open Discontinued Medications Generic Name Dose Route Start Last Admin Trade Name Freq PRN Reason Stop Dose Admin Sodium Chloride 1,000 mls @ 999 mls/hr 10/09/16 15:24 10/09/16 15:40 Normal Saline IV 10/09/16 16:24 999 mls/hr STAT ONE Administration Departure - Departure Time of Disposition: 17:08 Disposition: Refer to Observation Condition: good Clinical Impression: Dizziness - Discharge Information Referrals: Romy,Adin, DO [Primary Care Provider] - Forms: ED Department Discharge - My Orders Last 24 Hours: My Active Orders 10/09/16 15:22 Cardiac Monitoring [RC] . DIRECTED EKG Documentation Completion [RC] STAT Oxygen Therapy, ED [RC] ASDIRECTED Pulse Oximetry [RC] ASDIRECTED UA W/MICROSCOPIC [URIN] Stat Saline Lock Insert [OM.PC] Stat 10/09/16 15:23 Chest 1V Frontal [CR] Stat 10/09/16 15:24 Head wo Cont [CT] Stat Sodium Chloride 0.9% [Saline Flush] 10 ml FLUSH ASDIRECTED PRN Sodium Chloride 0.9% [Saline Flush] 2.5 ml FLUSH ASDIRECTED PRN - Assessment/Plan Last 24 Hours: My Active Orders 10/09/16 15:22 Cardiac Monitoring [RC] . DIRECTED EKG Documentation Completion [RC] STAT Oxygen Therapy, ED [RC] ASDIRECTED Pulse Oximetry [RC] ASDIRECTED UA W/MICROSCOPIC [URIN] Stat Saline Lock Insert [OM.PC] Stat 10/09/16 15:23 Chest 1V Frontal [CR] Stat 10/09/16 15:24 Head wo Cont [CT] Stat Sodium Chloride 0.9% [Saline Flush] 10 ml FLUSH ASDIRECTED PRN Sodium Chloride 0.9% [Saline Flush] 2.5 ml FLUSH ASDIRECTED PRN
[2016-10-09 16:17] LABS: CHLORIDE,CL 106 mmol/L (98-110); SODIUM,NA 137 mmol/L (136-146)
[2016-10-09] MEDS ORDERED: Morphine 2 MG/ML Syringe IVPUSH PRN (18:10)
[2016-10-09] MEDS ORDERED: Ondansetron 4 MG Tab.DIS PO PRN (18:10)
[2016-10-09] MEDS ORDERED: Acetaminophen 325 MG Tab PO PRN (18:10)
[2016-10-09] MEDS ORDERED: oxyCODONE 5 MG Tab PO PRN (18:10)
[2016-10-09] MEDS ORDERED: Temazepam 15 MG Cap PO PRN (18:10)
[2016-10-09] MEDS ORDERED: Sodium Chloride 0.9% 1,000 ML IV SCH (18:15)
[2016-10-09] MEDS: Rivaroxaban 15 MG Tab PO SCH (21:01)
[2016-10-10 05:24] LABS: CHLORIDE,CL 108 mmol/L (98-110); SODIUM,NA 138 mmol/L (136-146)
--- NOTE | 2016-10-10 08:21 | PCM.HP ---
H&P History of Present Illness - General Date of Service: 10/09/16 Source of Information: Patient, Family History Limitations: Reports: No Limitations - History of Present Illness Initial Comments - Free Text/Narative: Oct 09, 2016: The patient is a 71-year-old gentleman who presented to the emergency department with the complaint of dizziness has been going on for several weeks. Patient also says he has been having problems with balance. The patient was recently admitted and discharged secondary to severe bilateral pulmonary emboli and is currently anticoagulated on Xarelto. The patient had a CT scan taken to the emergency department which showed a subtle hypo-dense region possibly concern for subacute stroke. The patient has denied any weakness , numbness or tingling and has had no speech problems. Other than dizziness the patient has no complaints today. The patient is not taking any medications other than Xarelto for his pulmonary emboli. He has been in his usual state of health up until the incident with his PE. Patient is not short of breath today. Onset of Symptoms: Reports: Gradual Duration of Symptoms: Reports: Day(s): Location: Reports: Head Improves with: Reports: None Worsens with: Reports: None Associated Symptoms: Reports: No Other Symptoms Right Leg Pain Score (Numeric/FACES): 1 - Related Data Allergies/Adverse Reactions: Allergies Allergy/AdvReac Type Severity Reaction Status Date / Time No Known Allergies Allergy Verified 10/09/16 15:20 Home Medications: Home Meds Rivaroxaban [Xarelto] 15 mg PO BID #14 tablet 10/03/16 [Rx] Meclizine HCl [Bonine] 25 mg PO DAILY PRN 10/09/16 [History] Meclizine HCl [Dramamine Less Drowsy] 25 mg PO DAILY PRN 10/09/16 [History] Past Medical History HEENT History: Reports: Impaired Vision Cardiovascular History: Reports: Blood Clots/VTE/DVT Respiratory History: Reports: PE Gastrointestinal History: Reports: None Genitourinary History: Reports: Renal Calculus Musculoskeletal History: Reports: Fracture Neurological History: Reports: None Psychiatric History: Reports: Other (See Below) Other Psychiatric History: alcoholism Endocrine/Metabolic History: Reports: None Hematologic History: Reports: Anticoagulation Therapy Immunologic History: Reports: None Oncologic (Cancer) History: Reports: None Dermatologic History: Reports: Other (See Below) Other Dermatologic History: vitiligo - noted on his bilateral hands and knees - Infectious Disease History Infectious Disease History: Reports: Chicken Pox, Hepatitis C, Influenza, Mumps - Past Surgical History Head Surgeries/Procedures: Reports: None HEENT Surgical History: Reports: Other (See Below) Other HEENT Surgeries/Procedures: adenoid surgery when he was 17 yo. pt barely can remember. Cardiovascular Surgical History: Reports: None Respiratory Surgical History: Reports: None Musculoskeletal Surgical History: Reports: None Dermatological Surgical History: Reports: None Social & Family History - Family History Family Medical History: Noncontributory HEENT: Reports: Impaired Vision Cardiac: Reports: Aneurysm OBGYN: Reports: Oncologic: Reports: Cervix - Tobacco Use Smoking Status *Q: Never Smoker Second Hand Smoke Exposure: Yes - Caffeine Use Caffeine Use: Reports: Soda - Alcohol Use Days Per Week of Alcohol Use: 7 Number of Drinks Per Day: 10 Total Drinks Per Week: 70 Date of Last Drink: 09/29/16 - Recreational Drug Use Recreational Drug Use: No H&P Review of Systems - Review of Systems: Review Of Systems: See Below General: Reports: Weakness HEENT: Reports: No Symptoms Pulmonary: Reports: No Symptoms Cardiovascular: Reports: No Symptoms Gastrointestinal: Reports: No Symptoms Genitourinary: Reports: No Symptoms Musculoskeletal: Reports: No Symptoms Skin: Reports: No Symptoms Psychiatric: Reports: No Symptoms Neurological: Reports: Dizziness Hematologic/Lymphatic: Reports: No Symptoms Immunologic: Reports: No Symptoms Exam - Exam Exam: See Below - Vital Signs Vital Signs: Last Vital Signs Temp 36.6 C 10/10/16 07:54 Pulse 73 10/10/16 07:54 Resp 18 10/10/16 07:54 BP 120/72 10/10/16 07:54 Pulse Ox 93 L 10/10/16 07:54 Weight: 86.5 kg - Exam Quality Assessment: No: Supplemental Oxygen General: Alert, Oriented, 4 HEENT: Conjunctiva Clear, EACs Clear, EOMI, Mucosa Moist & [place], Nares Patent, PERRLA Neck: Supple, Trachea Midline, 2 Lungs: Clear to Auscultation, Normal Respiratory Effort Cardiovascular: Regular Rate, Regular Rhythm Abdomen: Normal Bowel Sounds, Soft. No: Peritoneal Signs, Distention Back Exam: Normal Inspection, Full Range of Motion, NT Extremities: Normal Inspection, Normal Pulses Skin: Warm, Dry, Intact Neurological: Cranial Nerves Intact Neuro Extensive - Mental Status: Alert, Oriented x3, Normal Mood/Affect, Normal Cognition, Other (no nystagmus) Psychiatric: Alert, Normal Affect, Normal Mood, Withdrawal Symptoms - Patient Data Lab Results last 24 hrs: Laboratory Results - last 24 hr 10/09/16 10/10/16 10/10/16 Range/Units 19:00 04:35 04:35 WBC 5.70 (4.0-11.0) K/uL RBC 4.09 L (4.50-5.90) M/uL Hgb 14.2 (13.0-17.0) g/dL Hct 40.8 (38.0-50.0) % MCV 99.8 H (80.0-98.0) fL MCH 34.7 H (27.0-32.0) pg MCHC 34.8 (31.0-37.0) g/dL RDW Std Deviation 48.4 (28.0-62.0) fl RDW Coeff of [place] 13 (11.0-15.0) % Plt Count 240 (150-400) K/uL MPV 9.80 (7.40-12.00) fL Add Manual Diff YES Neutrophils % (Manual) 42 L (48.0-80.0) % Lymphocytes % (Manual) 26 (16.0-40.0) % Monocytes % (Manual) 9 (0.0-15.0) % Eosinophils % (Manual) 21 H (0.0-7.0) % Basophils % (Manual) 2 H (0.0-1.5) % Nucleated RBC % 0.0 /100WBC Absolute Seg Neuts 2.4 Band Neutrophils # 1.5 Lymphocytes # (Manual) 1.5 Monocytes # (Manual) 0.5 Eosinophils # (Manual) 1.2 Basophils # (Manual) 0 Nucleated RBCs # 0 K/uL Sodium 138 (136-146) mmol/L Potassium 4.1 (3.5-5.1) mmol/L Chloride 108 (98-110) mmol/L Carbon Dioxide 23 (21-31) mmol/L BUN 9 (6.0-23.0) mg/dL Creatinine 0.7 (0.6-1.5) mg/dL Est Cr Clr Drug Dosing 114.17 mL/min Estimated GFR (MDRD) > 60.0 ml/min Glucose 93 (60-110) mg/dL Calcium 8.0 L (8.8-10.8) mg/dL Total Bilirubin 0.6 (0.1-1.5) mg/dL AST 23 (5-40) IU/L ALT 34 (8-54) IU/L Alkaline Phosphatase 51 (40-150) Total Protein 5.6 L (6.0-8.0) g/dL Albumin 3.3 L (3.4-4.8) g/dL Globulin 2.3 (2.0-3.5) g/dL Albumin/Globulin Ratio 1.4 (1.3-2.8) Urine Color YELLOW Urine Appearance CLEAR Urine pH 5.5 (5.0-8.0) Ur Specific [place] 1.015 (1.001-1.035) Urine Protein NEGATIVE (NEGATIVE) mg/dL Urine Glucose (UA) NEGATIVE (NEGATIVE) mg/dL Urine Ketones NEGATIVE (NEGATIVE) mg/dL Urine Occult Blood NEGATIVE (NEGATIVE) Urine Nitrite NEGATIVE (NEGATIVE) Urine Bilirubin NEGATIVE (NEGATIVE) Urine Urobilinogen 0.2 (<2.0) EU/dL Ur Leukocyte Esterase SMALL (NEGATIVE) Urine RBC 0-1 (0-2/HPF) Urine WBC 2-4 (0-5/HPF) Ur Epithelial Cells FEW (NONE-FEW) Urine Bacteria FEW (NEGATIVE) Urine Mucus LIGHT (NONE-MOD) Result Diagrams: 10/10/16 04:35 10/10/16 04:35 *Q Meaningful Use (ADM) - VTE *Q VTE Criteria *Q: VTE Pharmacological Contraindications *Q: High INR Value VTE Anticoagulation Contraindications: Treatment not tolerated - Stroke *Q Stroke Criteria *Q: - AMI *Q AMI Criteria *Q: - Problem List (1) Dizziness SNOMED Code(s): 216807749, 352478917 ICD Code: R42 - DIZZINESS AND GIDDINESS Status: Chronic Priority: High Current Visit: Yes (2) Anticoagulation adequate with anticoagulant therapy SNOMED Code(s): 229150833, 056139105 ICD Code: Z79.01 - TELEPHONE INTERVIEWER (CURRENT) USE OF ANTICOAGULANTS Status: Chronic Priority: High Current Visit: Yes (3) Pulmonary embolism SNOMED Code(s): 78269834, 66238173 ICD Code: I26.99 - OTHER PULMONARY EMBOLISM WITHOUT ACUTE COR PULMONALE Status: Acute Priority: High Current Visit: Yes Qualifiers: Pulmonary embolism type: other Chronicity: unspecified Acute cor pulmonale presence: without acute cor pulmonale Qualified Code(s): I26.99 - Other pulmonary embolism without acute cor pulmonale Problem List Initiated/Reviewed/Updated: Yes Orders Last 24hrs: Active Orders 24 hr Category Date Time Status Patient Status [ADT] Routine ADT 10/09/16 18:10 Active Oxygen Therapy [RC] PRN Care 10/09/16 18:10 Active Telemetry Monitoring [Cardiac Monitoring] [RC] . Care 10/09/16 17:13 Active DIRECTED Up With Assistance [RC] ASDIRECTED Care 10/09/16 18:10 Active Vital Signs [RC] Q4H Care 10/09/16 18:10 Active 2 Gram Sodium Diet [DIET] Diet 10/10/16 Breakfast Active Brain wo Cont [MR] Routine Exams 10/09/16 18:18 Ordered Acetaminophen [Tylenol] Med 10/09/16 18:10 Active 650 mg PO Q4H PRN Morphine Med 10/09/16 18:10 Active 2 mg IVPUSH Q2H PRN Ondansetron [Zofran ODT] Med 10/09/16 18:10 Active 4 mg PO Q6H PRN Rivaroxaban [Xarelto] Med 10/09/16 21:00 Active 15 mg PO BID Rivaroxaban [Xarelto] Med 10/11/16 09:00 Active 20 mg PO DAILY Sodium Chloride 0.9% [Normal Saline] 1,000 ml Med 10/09/16 18:15 Active IV ASDIRECTED Temazepam [Restoril] Med 10/09/16 18:10 Active 15 mg PO BEDTIME PRN oxyCODONE Med 10/09/16 18:10 Active 5 mg PO Q4H PRN Anticoagulation Contraindications VTE [AST] Per Unit Oth 10/09/16 18:10 Ordered Routine VTE Pharmacological Contraindications [AST] Per Unit Oth 10/09/16 18:10 Ordered Routine Resuscitation Status Routine Resus Stat 10/09/16 18:10 Ordered Medication Orders Acetaminophen (Tylenol) 650 mg PO Q4H PRN PRN Reason: Pain (Mild 1-3)/fever Sodium Chloride (Normal Saline) 1,000 mls @ 75 mls/hr IV ASDIRECTED [facility] Last Admin: 10/09/16 18:39 Dose: 75 mls/hr Morphine Sulfate (Morphine) 2 mg IVPUSH Q2H PRN PRN Reason: Pain (severe 7-10) Stop: 10/10/16 18:14 Ondansetron HCl (Zofran Odt) 4 mg PO Q6H PRN PRN Reason: nausea, able to take PO Oxycodone HCl (Oxycodone) 5 mg PO Q4H PRN PRN Reason: Pain (moderate 4-6) Rivaroxaban (Xarelto) 15 mg PO BID ANIL Stop: 10/10/16 09:00 Last Admin: 10/09/16 21:01 Dose: 15 mg Rivaroxaban (Xarelto) 20 mg PO DAILY ANIL Sodium Chloride (Saline Flush) 10 ml FLUSH ASDIRECTED PRN PRN Reason: Keep Vein Open Last Admin: 10/09/16 15:41 Dose: 10 ml Sodium Chloride (Saline Flush) 2.5 ml FLUSH ASDIRECTED PRN PRN Reason: Keep Vein Open Last Admin: 10/09/16 15:41 Dose: 2.5 ml Temazepam (Restoril) 15 mg PO BEDTIME PRN PRN Reason: Sleep Last Admin: 10/09/16 22:36 Dose: 15 mg Assessment/Plan Comment:: I've requested for an MRI of the patient's brain to better characterize the hypodense area located in the patient's right parietal area. I doubt that this is related to the patient's dizziness as he has no specific instances of hemiparesis. If the patient has a normal MRI I will consider the patient appropriate for discharge with followup with his primary care physician. The patient says that the meclizine that he has been taking has not worked for him very well. The patient is currently taking Xarelto therefore he will not need anticoagulation. The Xarelto will be continued. The patient does not show any evidence of hemorrhage. This will be monitored. The patient also have a diet as tolerated. I've encouraged patient to ambulate. I'll see the patient in followup and if the MRI is negative we'll consider him appropriate for discharge home.
[2016-10-10] MEDS: Rivaroxaban 15 MG Tab PO SCH (08:52)
--- NOTE | 2016-10-10 10:43 | CR ---
EXAM DATE: 10/09/16 PATIENT'S AGE: 71 Patient: EMILY LANGLEY Facility: [place], [place] Site . Site : 1945 Study: XRay Chest [id number]/1/[id number] 4:13:03 PM Ordering Physician: Leoncio Haddad Final Report: INDICATIONS: Pain. Shortness of breath. TECHNIQUE: Chest 1 view. COMPARISON: None FINDINGS: No pneumothorax, pleural effusion or focal airspace consolidation. Cardiac and mediastinal contours are within normal limits. Upper abdomen and osseous structures show no acute abnormality. IMPRESSION: No evidence of acute cardiopulmonary disease. Dictated by Gilberto Chávez MD @ 10/09/2016 4:41:25 PM Dictated by: Gilberto Chávez MD @ 10/09/2016 16:41:32 (Electronic Signature) Report Signed by Proxy. [facility]
--- NOTE | 2016-10-10 10:44 | CT ---
EXAM DATE: 10/09/16 PATIENT'S AGE: 71 Patient: EMILY LANGLEY Facility: [place], [place] Site . Site : 1945 Study: CT Head [id number]/1/2017 4:17:29 PM Ordering Physician: Leoncio Haddad Final Report: INDICATION: pain and dizziness TECHNIQUE: CT Head without contrast. COMPARISON: None. FINDINGS: There is no sign of intracranial hemorrhage or mass effect. Remote infarcts within the basal ganglia bilaterally. Subtle area of low attenuation within the deep white matter of the left parietal white matter best appreciated on series 201 images 38 and 39. No abnormal intra-axial or extra-axial fluid collection. No acute disease of the visualized paranasal sinuses and mastoid air cells. No fracture evident. No scalp hematoma/laceration. IMPRESSION: Subtle area of low attenuation within the deep white matter of the left parietal white matter best appreciated on series 201 images 38 and 39. The This could represent a remote change however, a subacute infarct cannot be entirely excluded. Recommend comparison with any prior imaging of the head and/or followup per stroke protocol MRI as clinically warranted. Dictated by: Mich Alanis MD @ 10/09/2016 16:56:14 (Electronic Signature) Report Signed by Proxy. [facility]
--- NOTE | 2016-10-10 11:22 | MR ---
EXAM DATE: 10/09/16 PATIENT'S AGE: 71 Patient: EMILY LANGLEY Facility: [place], [place] Site . Site : 1945 Study: MRI Head [id number]/2/2017 10:37:01 AM Ordering Physician: Romy Arroyo Final Report: Indication: 71-year-old male. Refractory vertigo. Technique: Volumetric 3 plane T1 weighted, T2 axial, FLAIR axial, susceptibility weighted axial, diffusion axial and ADC map axial images are acquired. Comparison: Noncontrast CT October 09, 2016. Findings: There is no pathologic intracranial susceptibility. There is no restricted diffusion. The ventricles are normal. Few punctate white matter foci of T2 prolongation are present within the cerebral hemispheres. Chronic lacunar infarction in the mid right cerebellum. Cerebellar tonsils are normally situated. There is no pathologic extra-axial fluid collection. Paranasal and mastoid air cells are unremarkable. Usual flow voids in the [place]. Intraorbital tissues normal. Impression: 1. No change, no restricted diffusion and no acute intracranial finding. 2. 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 3. Chronic lacunar infarction right cerebellum. Dictated by Jonathon Hidalgo MD @ Oct 10 2016 10:51AM (Electronic Signature) Report Signed by Proxy. [facility]
[2016-10-10 12:46] VITALS: BP 130/62
[2016-10-10] MEDS ORDERED: Rivaroxaban 15 MG Tab PO SCH (21:00)
[2016-10-11] MEDS ORDERED: Rivaroxaban 10 MG Tab PO SCH (09:00)
== END 2016-10-10 13:53 | disposition home or self-care (01) ==
LOC: MW.ED 15:10 → MW.MS 17:20
PROVIDERS: ADMIT Internal Medicine; ATTEND Internal Medicine
DX: I63.9 Cerebral infarction, unspecified (principal); I26.99 Other pulmonary embolism without acute cor pulmonale; Z87.442 Personal history of urinary calculi; Z86.19 Personal history of other infectious and parasitic diseases; Z79.01 Long term (current) use of anticoagulants; Z98.890 Other specified postprocedural states
CPT/HCPCS: 36415; 70450; 70551; 71010; 80053; 81001; 84484; 85025; 85610; 93005; 96360; 99285; A9270; J7040; 96361; 99282; G0378

== ENCOUNTER 2024-04-16 23:10 | Emergency (ER) | payer MEDICARE, BC ==
[2024-04-16] MEDS: Diphtheria,Pertussis(Acell),Tetanus Vaccine 0.5 ML Syringe IM ONE (23:38)
[2024-04-17 00:09] VITALS: PULSE 72
[2024-04-17 01:44] VITALS: BP 110/76
== END 2024-04-17 01:42 | disposition home or self-care (01) ==
LOC: MW.ED 23:10
DX: S01.01XA Laceration without foreign body of scalp, initial encounter (principal); Z23 Encounter for immunization; Z79.899 Other long term (current) drug therapy; W19.XXXA Unspecified fall, initial encounter
CPT/HCPCS: 12002; 70450; 70450-26; 72125; 72125-26; 90471; 90715; 99283; 99284-25

== ENCOUNTER 2024-04-25 11:59 | Emergency (ER) | payer MEDICARE, BC ==
[2024-04-25 12:29] VITALS: BP 126/60; PULSE 79
== END 2024-04-25 12:38 | disposition left against medical advice (07) ==
LOC: MW.ED 11:59
DX: S01.01XD Laceration without foreign body of scalp, subsequent encounter (principal); X58.XXXD Exposure to other specified factors, subsequent encounter
CPT/HCPCS: 99281